=== PATIENT | male | born 1960 | race Caucasian/White ===

== ENCOUNTER 2018-07-04 07:20 | Emergency (ER) | payer BC ==
--- OUTSIDE RECORDS SUMMARY | 2018-07-04 07:23 | XMS REPORT | Continuity of Care Document ---
:1960 Author Organization Interface Problems Problem Status Onset Classification Date Comments Source Date Reported J32.9 - Active [facility] OPID "CHRONIC 6 [place] SINUSITIS, UNSPECIFIED" Hypertrophy of Active Problem 08/25/2016 [facility] nasal 1 [place] turbinates Medications Medication Details Route Status Patient Ordering Order Source Instructions Provider Date Allergies, Adverse Reactions, Alerts Substance Category Reaction Severity Reaction Status Date Comments Source type Reported NKDA Assertion Propensity Active [facility] OPID to adverse 2 [place] reactions to substance Immunizations Immunization Date Given Site Status Last Updated Comments Source Results Order Results Value Reference Date Interpretation Comments Source Name Range Sinus wo Sinus wo PROCEDURE: SINUS CT 08/22 - MH OPID contrast contrast /2015 - [place] CT CT CLINICAL INFORMATION: J32.9. Chronic sinusitis. Read by: Frank Fontaine MD Dictated Date/time: 08/22/16 19:41 Electronically Signed by: Frank Fontaine MD 08/23/16 10:08 FINAL REPORT Note: The patient also reports a headache. COMPARISON: None. TECHNIQUE: Unenhanced axial helical CT images of the paranasal sinuses were performed using the landmark protocol. Coronal and sagittal reconstructions were obtained. CT Radiation Dose DLP 666.75 mGy-cm. FINDINGS: PARANASAL SINUSES: There is segmental mucosal thickening in the bilateral ethmoid sinuses measuring a maximal thickness of approximately 1 mm bilaterally. The cribriform plate appears intact. There is a thin bony septum in the inferior right maxillary sinus. There is segmental mucosal thickening in the inferomedial right maxillary sinus measuring a maximal thickness of approximately 5 mm. Th ere is minimal mucous stranding in the superior right maxillary sinus. The left maxillary sinus is unremarkable. The frontal and sphenoid sinuses are unremarkable. NASAL CAVITY: The ostiomeatal complexes are patent. There is a small frida bullosa in the right middle nasal turbinate. There is leftward deviation of the nasal septum measuring a maximal deviation of approximately 5 mm from the midline. The nasal cavity is otherwise unremarkable. ADDITIONAL FINDINGS: There is mild generalized cerebral atrophy. There is mild calcification involving the cavernous segment of the right internal carotid artery. There is a 4 mm rounded lucency in the marrow of the left occipital calvarium. A benign etiology is favored such as a hemangioma. There is mild debris in the bilateral external auditory canals. There is an impacted tooth in the anterior left maxilla. There is asymmetrically decreased aeration in the inferior left mastoid, likely a developmental variation. The mastoids are otherwise unremarkable without demonstrable acute mastoiditis. There is no demonstrable abnormality of the orbits or middle ear cavities. IMPRESSION: 1. Chronic bilateral ethmoid and right maxillary sinusitis. 2. Right frida bullosa. 3. Deviated nasal septum. 4. Additional findings as described above. SL: 15 Vital Signs Vital Sign Value Date Comments Source Encounters Location Location Encounter Encounter Reason Attending ADM DC Status Source Details Type Number For Provider Date Date Visit [facility] Outpt Diag [id number] Daniel Ward 08[facility]22 [facility] [place] [facility] [place] Procedures Procedure Code Date Perfomer Comments Source
--- OUTSIDE RECORDS SUMMARY | 2018-07-04 07:23 | XMS REPORT | Clinical Summary ---
:1960 Author Organization [facility] Address [address] [place] [address] Care Team Providers Name Role Phone Asked, No Pcp Primary Care Provider Unavailable Allergies No Known Allergies Current Medications Prescription Sig. Disp. Refills Start Date End Date Status NASCOBAL 500 mcg/spray 1 spray by Each 3 02/27/2017 Active spray,non-aerosol Nare route. ferrous gluconate Take 324 mg by Active (FERGON) 324 MG tablet mouth daily with breakfast. cholecalciferol, vitamin Take 1,000 Units by Active D3, (VITAMIN D3) 1,000 mouth daily. unit tablet FERROUS SULFATE (IRON Take 1 tablet by Active ORAL) mouth daily. MULTIVITAMIN ORAL Take 1 tablet by Active mouth daily. CALCIUM ORAL Take 1 tablet by Active mouth daily. Calcium +D3+Magnesium albuterol (PROAIR Inhale 2 puffs Active HFA,PROVENTIL every 6 (six) hours HFA,VENTOLIN HFA) 90 as needed for mcg/actuation inhaler wheezing. Active Problems Problem Noted Date Status post bariatric surgery 02/27/2017 Jung's esophagus 02/27/2017 Asthma 02/27/2017 Osteoarthritis 02/27/2017 Encounters Date Type Specialty Care Team Description 04/23/2018 Office Visit General Surgery Seb Jimenez Status post bariatric MD Baylee surgery (Primary Dx) 04/23/2018 Orders Only General Surgery Lucie Alvarez RN 04/23/2018 Orders Only General Surgery Lien Theodore MA Bariatric surgery status (Primary Dx) 03/24/2018 Orders Only General Surgery Lien Theodore MA Bariatric surgery status (Primary Dx) 08/13/2017 Hospital Encounter Radiology Norm Bradley Cough MD 08/13/2017 Transcribe Orders Access Kirk, Norm S., Cough (Primary Dx) MD after 07/03/2017 Family History Medical History Relation Name Comments No Known Problems Daughter No Known Problems Daughter Esophageal cancer Father No Known Problems Maternal Grandfather No Known Problems Maternal Grandmother Cancer Mother Glaucoma Paternal Grandfather Cancer Paternal Grandmother Cancer Sister No Known Problems Son Relation Name Status Comments Daughter Alive Daughter Alive Father Maternal Grandfather Maternal Grandmother Mother Alive breathing problems Paternal Grandfather heart/intestinal problems Paternal Grandmother Sister Alive Son Alive Social History Tobacco Use Types Packs/Day Years Used Date Never Smoker Smokeless Tobacco: Never Used Alcohol Use Drinks/Week oz/Week Comments No Sex Assigned at Date Recorded Not on file Last Filed Vital Signs Vital Sign Reading Time Taken Blood Pressure 133/78 04/23/2018 9:20 AM CDT Pulse 65 04/23/2018 9:20 AM CDT Temperature 35.7 C (96.2 F) 04/23/2018 9:20 AM CDT Respiratory Rate 16 04/23/2018 9:20 AM CDT Oxygen Saturation - - Inhaled Oxygen Concentration - - Weight 75.2 kg (165 lb 12.8 oz) 04/23/2018 9:20 AM CDT Height 177.8 cm (5' 10") 04/23/2018 9:20 AM CDT Body Mass Index 23.79 04/23/2018 9:20 AM CDT Plan of Treatment Date Type Specialty Care Team Description 04/22/2019 Office Visit General Surgery Seb Jimenez MD [address] [facility] [address] [place] [address] Health Maintenance Due Date Last Done Comments COLON CANCER SCREENING 2012 SHINGRIX VACCINE (#1) 2012 INFLUENZA VACCINE 07/02/2018 Procedures Procedure Name Priority Date/Time Associated Comments Diagnosis PHOSPHORUS LEVEL Routine 03/26/2018 9:03 Bariatric surgery Results for this AM CDT status procedure are in the results section. MAGNESIUM LEVEL Routine 03/26/2018 9:03 Bariatric surgery Results for this AM CDT status procedure are in the results section. T3 Routine 03/26/2018 9:03 Bariatric surgery Results for this AM CDT status procedure are in the results section. ZINC LEVEL, SERUM Routine 03/26/2018 9:03 Bariatric surgery Results for this AM CDT status procedure are in the results section. VITAMIN B1 LEVEL, Routine 03/26/2018 9:03 Bariatric surgery Results for this WHOLE BLOOD AM CDT status procedure are in the results section. FERRITIN LEVEL Routine 03/26/2018 9:03 Bariatric surgery Results for this AM CDT status procedure are in the results section. FOLATE LEVEL Routine 03/26/2018 9:03 Bariatric surgery Results for this AM CDT status procedure are in the results section. COPPER LEVEL, SERUM Routine 03/26/2018 9:03 Bariatric surgery Results for this AM CDT status procedure are in the results section. VITAMIN D 25 HYDROXY Routine 03/26/2018 9:03 Bariatric surgery Results for this LEVEL AM CDT status procedure are in the results section. VITAMIN B12 LEVEL Routine 03/26/2018 9:03 Bariatric surgery Results for this AM CDT status procedure are in the results section. VITAMIN A LEVEL, Routine 03/26/2018 9:03 Bariatric surgery Results for this PLASMA OR SERUM AM CDT status procedure are in the results section. CBC WITH PLATELET AND Routine 03/26/2018 9:03 Bariatric surgery Results for this DIFFERENTIAL AM CDT status procedure are in the results section. PARATHYROID HORMONE Routine 03/26/2018 9:03 Bariatric surgery Results for this AM CDT status procedure are in the results section. HEMOGLOBIN A1C Routine 03/26/2018 9:03 Bariatric surgery Results for this AM CDT status procedure are in the results section. THYROID STIMULATING Routine 03/26/2018 9:03 Bariatric surgery Results for this HORMONE AM CDT status procedure are in the results section. T4, FREE Routine 03/26/2018 9:03 Bariatric surgery Results for this AM CDT status procedure are in the results section. TOTAL IRON BINDING Routine 03/26/2018 9:03 Bariatric surgery Results for this CAPACITY AM CDT status procedure are in the results section. LIPID PANEL Routine 03/26/2018 9:03 Bariatric surgery Results for this AM CDT status procedure are in the results section. COMPREHENSIVE Routine 03/26/2018 9:03 Bariatric surgery Results for this METABOLIC PANEL AM CDT status procedure are in the results section. XR CHEST 2 VW Routine 08/13/2017 11:06 Cough Results for this AM CDT procedure are in the results section. after 07/03/2017 Results Total iron binding capacity (03/26/2018 9:03 AM) Iron level 80 50 - 180 mcg/dL [facility] Iron binding capacity 343 250 - 425 mcg/dL (calc) [facility] Iron saturation 23 15 - 60 % (calc) [facility] Specimen Blood Narrative Performed At FASTING:YES QUEST FASTING: YES Resulting Agency Comment Performing Organization Information: Site ID: [id number] Name: [facility] Address: [address] [place] [address] Director: Awilda Whittaker Performing Organization Address City/[facility] Phone Number [facility] [address] [place], [place] [phone] Copper level, serum (03/26/2018 9:03 AM) Copper 108 70 - 175 mcg/dL wut[facility]OLS Comment: AMAIRANI This test was developed and its analytical performance characteristics have been determined by [facility]. It has not been cleared or approved by the US Food and Drug Administration. This assay has been validated pursuant to the CLIA regulations and is used for clinical purposes. Specimen Blood Narrative Performed At FASTING:YES QUEST FASTING: YES Resulting Agency Comment Performing Organization Information: Site ID: [id number] Name: [facility] [place] Address: [address] [place] [phone] Director: Rocco Lacy M.D., Ph.D Performing Organization Address [facility] Phone Number [facility] [id number] [place] [address] [phone] Vitamin B1 level, whole blood (03/26/2018 9:03 AM) Vitamin B1, whole 142 78 - 185 nmol/L [facility] blood Comment: CARLOS BALES Vitamin supplementation within 24 hours prior to blood draw may affect the accuracy of results. This test was developed and its analytical performance characteristics have been determined by [facility]. It has not been cleared or approved by FDA. This assay has been validated pursuant to the CLIA regulations and is used for clinical purposes. Specimen Blood Narrative Performed At FASTING:YES QUEST FASTING: YES Resulting Agency Comment Performing Organization Information: Site ID: SLI Name: [facility] [place] Address: [address] [place] [address] Director: Rocco Lacy M.D., Ph.D Performing Organization Address [facility] Phone [place] [address] Zinc level, serum (03/26/2018 9:03 AM) Zinc 82 60 - 130 mcg/dL [facility] CARLOS Comment: AMAIRANI This test was developed and its analytical performance characteristics have been determined by [facility]. It has not been cleared or approved by the US Food and Drug Administration. This assay has been validated pursuant to the CLIA regulations and is used for clinical purposes. Specimen Blood Narrative Performed At FASTING:YES QUEST FASTING: YES Resulting Agency Comment Performing Organization Information: Site ID: [facility] Name: [facility] Address: [address] [place] [phone] Director: Rocco Lacy M.D., Ph.D Performing Organization Address [facility] [place] [address] Vitamin A level, plasma or serum (03/26/2018 9:03 AM) Vitamin A (retinol) 31 (L) 38 - 98 mcg/dL [facility] Comment: CARLOS BALES Clin Chem Vol. 34.No.8. [id number]. 1998 Vitamin supplementation within 24 hours prior to blood draw may affect the accuracy of results. This test was developed and its analytical performance characteristics have been determined by [facility]. It has not been cleared or approved by the US Food and Drug Administration. This assay has been validated pursuant to the CLIA regulations and is used for clinical purposes. Specimen Blood Narrative Performed At FASTING:YES QUEST FASTING: YES Resulting Agency Comment Performing Organization Information: Site ID: [facility] Name: [facility] Address: [address] [place] [phone] Director: Rocco Lacy M.D., Ph.D Performing Organization Address [facility] Phone Number [facility] [address] [address] [phone] Vitamin D 25 hydroxy level (03/26/2018 9:03 AM) Vitamin D, 25-hydroxy 18 (L) 30 - 100 ng/mL [facility] Comment: MCQUEEN Vitamin D Status 25-OH Vitamin D: Deficiency:<20 ng/mL Insufficiency: 20 - 29 ng/mL Optimal: > or=30 ng/mL For 25-OH Vitamin D testing on patients on D2-supplementation and patients for whom quantitation of D2 and D3 fractions is required, the QuestAssureD(TM) 25-OH VIT D, (D2,D3), LC/MS/MS is recommended: order code 54610 (patients >2yrs). For more information on this test, go to: http://education.Brainlike/faq/MJU830 (This link is being provided for informational/educational purposes only.) Specimen Blood Narrative Performed At FASTING:YES QUEST FASTING: YES Resulting Agency Comment Performing Organization Information: Site ID: RGA Name: [facility] Address: [address] [place] [phone] Director: Awilda Whittaker Performing Organization Address City/State/Zipcode Phone Number [facility] [place] [address] [place] [phone] CBC with platelet and differential (03/26/2018 9:03 AM) WBC 6.7 3.8 - 10.8 Thousand/uL [facility] RBC 4.95 4.20 - 5.80 Million/uL [facility] HGB 14.5 13.2 - 17.1 g/dL [facility] HCT 43.6 38.5 - 50.0 % [facility] [place] MCV 88.1 80.0 - 100.0 fL [facility] [place] MCH 29.3 27.0 - 33.0 pg [facility] [place] MCHC 33.3 32.0 - 36.0 g/dL [facility] [place] RDW 12.4 11.0 - 15.0 % [facility] [place] Platelet count 311 140 - 400 Thousand/uL [facility] [place] MPV 10.1 7.5 - 12.5 fL [facility] [place] Neutrophils, absolute 4,228 1,500 - 7,800 cells/uL [facility] [place] Lymphocytes, absolute 1,782 850 - 3,900 cells/uL [facility] [place] Monocytes, absolute 516 200 - 950 cells/uL [facility] [place] Eosinophils, absolute 127 15 - 500 cells/uL [facility] [place] Basophils, absolute 47 0 - 200 cells/uL [facility] [place] Neutrophils 63.1 % [facility] [place] Lymphocytes 26.6 % [facility] [place] Monocytes 7.7 % [facility] [place] Eosinophils 1.9 % [facility] [place] Basophils + RC 0.7 % [facility] [place] Specimen Blood Narrative Performed At FASTING:YES QUEST FASTING: YES Resulting Agency Comment Performing Organization Information: Site ID: RGA Name: [facility] Address: [address] [place], [place] [id number] Director: Awilda Whittaker Performing Organization Address [facility] Cent[facility]ode [place] [address] T3 (03/26/2018 9:03 AM) T3 101 76 - 181 ng/dL [facility] [place] Specimen Blood Narrative Performed At FASTING:YES QUEST FASTING: YES Resulting Agency Comment Performing Organization Information: Site ID: RGA Name: [facility] Address: [address] [place] [address] Director: Awilda Whittaker Performing Organization Address [facility] Cent[facility]ode [place] [address] Thyroid stimulating hormone (03/26/2018 9:03 AM) TSH 1.94 0.40 - 4.50 mIU/L [facility] [place] Specimen Blood Narrative Performed At FASTING:YES QUEST FASTING: YES Resulting Agency Comment Performing Organization Information: Site ID: [id number] Name: [facility] Address: [address] [place] [address] Director: Awilda Whittaker Performing Organization Address [facility] Centercode Phone Number [facility] [place] [phone] T4, free (03/26/2018 9:03 AM) T4, free 1.3 0.8 - 1.8 ng/dL [facility] [place] Specimen Blood Narrative Performed At FASTING:YES QUEST FASTING: YES Resulting Agency Comment Performing Organization Information: Site ID: RGA Name: [facility] Address: [address] [place] [address] Director: Awilda Whittaker Performing Organization Address [facility] Cent[facility]ode [place] [address] Phosphorus level (03/26/2018 9:03 AM) Phosphorus 3.2 2.5 - 4.5 mg/dL [facility] [place] Specimen Blood Narrative Performed At FASTING:YES QUEST FASTING: YES Resulting Agency Comment Performing Organization Information: Site ID: RGA Name: [facility] Address: [address] [place] [phone] Director: Awilda Whittaker Performing Organization Address [facility] Cent[facility] Phone Number [facility] [address] [address] Parathyroid hormone (03/26/2018 9:03 AM) PTH 26 14 - 64 pg/mL [facility] Comment: II Interpretive GuideIntact PTH Calcium ------- Normal ParathyroidNormal Normal HypoparathyroidismLow or Low NormalLow Hyperparathyroidism PrimaryNormal or High High SecondaryHigh Normal or Low Tertiary High High Non-Parathyroid HypercalcemiaLow or Low NormalHigh Specimen Blood Narrative Performed At FASTING:YES QUEST FASTING: YES Resulting Agency Comment Performing Organization Information: Site ID: IG Name: [facility] Address: [address] [place] [phone] Director: Dr. Jody Camarillo Performing Organization Address [facility] Phone Number [facility] [address] Magnesium level (03/26/2018 9:03 AM) Magnesium 2.1 1.5 - 2.5 mg/dL [facility] [place] Specimen Blood Narrative Performed At FASTING:YES QUEST FASTING: YES Resulting Agency Comment Performing Organization Information: Site ID: RGA Name: [facility] Address: [address] [place] [phone] Director: Awilda Whittaker Performing Organization Address [facility] Phone Number [facility] [address] [address] Hemoglobin A1c (03/26/2018 9:03 AM) Hemoglobin A1C 5.4 <5.7 % of total Hgb [facility] [place] Comment: For the purpose of screening for the presence of diabetes: <5.7% Consistent with the absence of diabetes 5.7-6.4%Consistent with increased risk for diabetes (prediabetes) > or=6.5%Consistent with diabetes This assay result is consistent with a decreased risk of diabetes. Currently, no consensus exists regarding use of hemoglobin A1c for diagnosis of diabetes in children. According to [place] Diabetes Association (ADA) guidelines, hemoglobin A1c <7.0% represents optimal control in non- diabetic patients. Different metrics may apply to specific patient populations. Standards of Medical Care in Diabetes(ADA). Specimen Blood Narrative Performed At FASTING:YES QUEST FASTING: YES Resulting Agency Comment Performing Organization Information: Site ID: [facility] Name: [facility] Address: [address] [place] [phone] Director: Awilda Whittaker Performing Organization Address [facility] Cent[facility]ode Phone Number [facility] [address] [address] Folate level (03/26/2018 9:03 AM) Folate 7.5 ng/mL [facility] [place] Comment: Reference Range Low: <3.4 Borderline:3.4- 5.4 Normal:> 5.4 Specimen Blood Narrative Performed At FASTING:YES QUEST FASTING: YES Resulting Agency Comment Performing Organization Information: Site ID: A Name: [facility] Address: [address] [place] [phone] Director: Awilda Whittaker Performing Organization Address [facility] Phone Number [email or web address] [place] [phone] Ferritin level (03/26/2018 9:03 AM) Ferritin level 58 20 - 380 ng/mL [facility] [place] Specimen Blood Narrative Performed At FASTING:YES QUEST FASTING: YES Resulting Agency Comment Performing Organization Information: Site ID: [facility] Name: [facility] Address: [address] [place] [phone] Director: Awilda Whittaker Performing Organization Address [facility] Cent[facility] Phone Number [facility] [address] [address] Vitamin B12 level (03/26/2018 9:03 AM) Vitamin B12 438 200 - 1,100 pg/mL [facility] [place] Specimen Blood Narrative Performed At FASTING:YES QUEST FASTING: YES Resulting Agency Comment Performing Organization Information: Site ID: RGA Name: [facility] Address: [address] [place] [phone] Director: Awilda Whittaker Performing Organization Address [facility] Cent[facility] Phone Number [facility] [address] [address] Lipid panel (03/26/2018 9:03 AM) Cholesterol, total 150 <200 mg/dL [facility] [place] HDL cholesterol 33 (L) >40 mg/dL [facility] [place] Triglycerides 79 <150 mg/dL [facility] [place] LDL cholesterol 100 (H) mg/dL (calc) [facility] calculated Comment: [place] Reference range: <100 Desirable range <100 mg/dL for primary prevention; <70 mg/dL for patients with CHD or diabetic patients with > or=2 CHD risk factors. LDL-C is now calculated using the Giuseppe calculation, which is a validated novel method providing better accuracy than the Friedewald equation in the estimation of LDL-C. Rinku SS et al. ENA. 2013;310(19): 2946-8090 (http://education.UseTogether/faq/JUD647) Cholesterol/HDL ratio 4.5 <5.0 (calc) [facility] Non-HDL cholesterol 117 <130 mg/dL [facility] Comment: (calc) [place] For patients with diabetes plus 1 major ASCVD risk factor, treating to a non-HDL-C goal of <100 mg/dL (LDL-C of <70 mg/dL) is considered a therapeutic option. Specimen Blood Narrative Performed At FASTING:YES QUEST FASTING: YES Resulting Agency Comment Performing Organization Information: Site ID: RGA Name: [facility] Address: [address] [place] [phone] Director: Awilda Whittaker Performing Organization Address City/[facility] Phone Number [facility] [address] [address] Comprehensive metabolic panel (03/26/2018 9:03 AM) Glucose 86 65 - 99 mg/dL [facility] Comment: [place] Fasting reference interval BUN, whole blood 16 7 - 25 mg/dL [facility] [place] Creatinine 0.86 0.70 - 1.33 [facility] Comment: mg/dL [place] For patients >49 years of age, the reference limit for Creatinine is approximately 13% higher for people identified as -[place]. EGFR Non-Afr. [place] 98 > OR=60 [facility] mL/min/1.73m2 [place] EGFR 113 > OR=60 [facility] mL/min/1.73m2 [place] BUN/creatinine ratio NOT APPLICABLE 6 - 22 (calc) [facility] [place] Sodium 142 135 - 146 mmol/L [facility] [place] Potassium 4.1 3.5 - 5.3 mmol/L [facility] [place] Chloride 105 98 - 110 mmol/L [facility] [place] CO2 32 (H) 20 - 31 mmol/L [facility] [place] Calcium 9.2 8.6 - 10.3 mg/dL [facility] [place] Protein 6.7 6.1 - 8.1 g/dL [facility] [place] Albumin, S 3.9 3.6 - 5.1 g/dL [facility] [place] Globulin, total 2.8 1.9 - 3.7 g/dL [facility] (calc) [place] Albumin/globulin ratio 1.4 1.0 - 2.5 (calc) [facility] [place] Total bilirubin 0.5 0.2 - 1.2 mg/dL [facility] Alkaline phosphatase 68 40 - 115 U/L [facility] [place] AST 11 10 - 35 U/L [facility] ALT 11 9 - 46 U/L [facility] [place] Specimen Blood Narrative Performed At FASTING:YES QUEST FASTING: YES Resulting Agency Comment Performing Organization Information: Site ID: RGA Name: [facility] Address: [address] [place] [phone] Director: Awilda Whittaker Performing Organization Address City/State/Zipcode Phone Number [facility] [place] [phone] XR Chest 2 Vw (08/13/2017 11:06 AM) Narrative Performed At EXAMINATION:XR CHEST 2 VW RADIANT CLINICAL HISTORY:R05 Cough, cough COMPARISON:None IMPRESSION: Postoperative changes noted in the cervical spine. Heart, mediastinum and lung addison are normal. [id number] Procedure Note Hm Interface, Radiology Results Incoming - 08/13/2017 11:15 AM CDT EXAMINATION: XR CHEST 2 VW CLINICAL HISTORY: R05 Cough, cough COMPARISON: None IMPRESSION: Postoperative changes noted in the cervical spine. Heart, mediastinum and lung addison are normal. [id number] Performing Organization Address City/State/Zipcode Phone Number [facility] [address] [place] [address] after 07/03/2017 Insurance Payer Benefit Plan / Group Subscriber ID Type Phone Address BCBS BCBS CHOICE PPO/FEDERAL EMPL PPO xxxxxxxxxxxx PPO Work: [address] [phone] [place], [place] [address] Home: [phone] [facility]
--- OUTSIDE RECORDS SUMMARY | 2018-07-04 07:23 | XMS REPORT | Summary of Care ---
:1960 Author Organization [facility] [place] Address [facility] [place], [place] [address]- Encounter HQ Encntr_alias(FIN) [id number] Date(s): 08/22/16 - 08/22/16 [facility] [address], [facility] [address] [place] [phone] Discharge Disposition: Home or Self Care Attending Physician: Daniel Ward MD Vital Signs No data available for this section Problem List Condition Effective Dates Status Health Status Informant Hypertrophy of nasal 2011 Active turbinates(Confirmed) Allergies, Adverse Reactions, Alerts Substance Reaction Severity Status NKDA Active Medications No data available for this section Results No data available for this section Immunizations No data available for this section Procedures No data available for this section Social History Social History Type Response Assessment and Plan No data available for this section
[2018-07-04] MEDS ORDERED: LIDOCAINE 1% MPF 5 ML VIAL ONE (07:57)
[2018-07-04] MEDS ORDERED: BUPIVACAINE 0.5% PF 10 ML VIAL ONE (07:57)
[2018-07-04] MEDS ORDERED: TETANUS & DIPHTHERIA TOX,ADULT 0.5 ML VIAL ONE (07:57)
--- NOTE | 2018-07-04 08:19 | EDPHYS ---
Physician Documentation [facility] Name: Jaydon Walden Age: 57 yrs Sex: Male : 1960 Arrival Date: 07/04/2018 Time: 07:24 Bed 17 Private MD: Maciej Mondragon ED Physician Conner Fairbanks HPI: 07/04 08:01 This 57 yrs old Male presents to ER via Ambulatory with complaints of FISH kdr HOOK IN HAND. 08:01 The patient or guardian reports injury, a puncture wound, Fish hook to medial (ulnar) kdr side of hand - along distal left 5th metacarpal. Context: [place], [place] from The patient states that when he reached for a hook, the fish jumped and the hook was pulled into his hand. Onset: The symptoms/episode began/occurred suddenly, just prior to arrival. Modifying factors: The symptoms are alleviated by nothing, the symptoms are aggravated by movement. Associated signs and symptoms: The patient has no apparent associated signs or symptoms. Severity of symptoms: At their worst the symptoms were mild. The patient has not experienced similar symptoms in the past. The patient has not recently seen a physician. Historical: - Allergies: 07:38 NKA; iw - Home Meds: 07:38 None [Active]; iw - PMHx: 07:38 None; iw - PSHx: 07:38 neck; Gastric Bypass; esophagus; left shoulder; iw - Immunization history:: Last tetanus immunization: unknown. - Social history:: Smoking status: Patient/guardian denies using tobacco. - Ebola Screening: : Patient negative for fever greater than or equal to 101.5 degrees Fahrenheit, and additional compatible Ebola Virus Disease symptoms Patient denies exposure to infectious person Patient denies travel to an Ebola-affected area in the 21 days before illness onset No symptoms or risks identified at this time. ROS: 08:01 Constitutional: Negative for fever, chills, and weight loss, Eyes: Negative for injury, kdr pain, redness, and discharge. 08:01 MS/extremity: Positive for pain, puncture. Exam: 08:01 Constitutional: This is a well developed, well nourished patient who is awake, alert, kdr and in no acute distress. 08:01 Musculoskeletal/extremity: Extremities: grossly normal except: pain, puncture. Vital Signs: 07:39 BP 116 / 78; Pulse 67; Resp 16; Temp 98.2; Pulse Ox 98% on R/A; Weight 72.57 kg; Height iw 5 ft. 10 in. (177.80 cm); Pain 6/10; 08:21 BP 115 / 80; Pulse 66; Resp 17; Pulse Ox 97% on R/A; Pain 0/10; tw2 07:39 Body Mass Index 22.96 (72.57 kg, 177.80 cm) Procedures: 08:01 Foreign Body Removal: a fishhook, from the left inner aspect of left palm. kdr MDM: 08:19 Patient medically screened. kdr 08:21 Data reviewed: vital signs, nurses notes. Counseling: I had a detailed discussion with kdr the patient and/or guardian regarding: the need for outpatient follow up. 07/04 07:47 Order name: Dressing - Wound; Complete Time: 08:21 kdr 07/04 07:47 Order name: Gloves, Sterile; Complete Time: 07:58 kdr 07/04 07:47 Order name: Setup Suture Tray; Complete Time: 07:58 kdr Administered Medications: 07:57 Drug: Tetanus-Diphtheria Toxoid Adult 0.5 ml {Fish Filleter: [employer]. Exp: 08/20/2020. Lot #: [id number]. } Route: IM; Site: left deltoid; 08:13 Follow up: Response: No adverse reaction tw2 08:13 Drug: Marcaine (0.25 %) 10 mg {Note: by Dr. Fairbanks.} Route: Infiltration; tw2 08:13 Drug: Lidocaine (1 %) 10 mg {Note: by Dr. Fairbanks.} Volume: 5 ml; Route: Infiltration; tw2 08:21 Drug: Bactrim (160 mg-800 mg (DS) 1 tablet Route: PO; tw2 08:34 Follow up: Response: No adverse reaction tw2 Disposition: 07/04/18 08:19 Discharged to Home. Impression: Puncture wound to left hand - fish hook. Removed. - Condition is Stable. - Discharge Instructions: Puncture Wound, [id number]. - Prescriptions for Tramadol 50 mg Oral Tablet - take 1 tablet by ORAL route every 8 hours as needed; 12 tablet. Bactrim DS 800- 160 mg Oral Tablet - take 1 tablet by ORAL route every 12 hours for 7 days; 14 tablet. - Medication Reconciliation Form, Thank You Letter, Antibiotic Education form. - Follow up: Maciej Mondragon MD; When: 2 - 3 days; Reason: If symptoms return, Further diagnostic work-up, Recheck today's complaints, Continuance of care, Re-evaluation by your physician. - Problem is new. - Symptoms have improved. Signatures: Conner Fairbanks MD MD kdr Martina Mendez RN RN iw Madelyn Leroy RN RN tw2 Corrections: (The following items were deleted from the chart) 08:34 08:19 07/04/2018 08:19 Discharged to Home. Impression: Puncture wound to left hand - tw2 fish hook. Removed. Condition is Stable. Forms are Medication Reconciliation Form, Thank You Letter, Antibiotic Education, Prescription Opioid Use. Follow up: Maciej Mondragon; When: 2 - 3 days; Reason: If symptoms return, Further diagnostic work-up, Recheck today's complaints, Continuance of care, Re-evaluation by your physician. Problem is new. Symptoms have improved. kdr
--- NOTE | 2018-07-04 08:19 | ER ---
Nurse's Notes [facility] Name: Jaydon Walden Age: 57 yrs Sex: Male : 1960 Arrival Date: 07/04/2018 Time: 07:24 Bed 17 Private MD: Maciej Mondragon Diagnosis: Puncture wound to left hand - fish hook. 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 Transition of care: patient was not received from another setting of care. Onset of symptoms was July 04, 2018. Risk Assessment: Do you want to hurt yourself or someone else? Patient reports no desire to harm self or others. Initial Sepsis Screen: Does the patient meet any 2 criteria? No. Patient's initial sepsis screen is negative. Does the patient have a suspected source of infection? No. Patient's initial sepsis screen is negative. Care prior to arrival: None. 07:37 Method Of Arrival: Ambulatory iw 07:37 Acuity: VENTURA 4 iw Triage Assessment: 08:24 General: Appears in no apparent distress. Behavior is calm, cooperative, appropriate tw2 for age. Historical: - Allergies: 07:38 NKA; iw - Home Meds: 07:38 None [Active]; iw - PMHx: 07:38 None; iw - PSHx: 07:38 neck; Gastric Bypass; esophagus; left shoulder; iw - Immunization history:: Last tetanus immunization: unknown. - Social history:: Smoking status: Patient/guardian denies using tobacco. - Ebola Screening: : Patient negative for fever greater than or equal to 101.5 degrees Fahrenheit, and additional compatible Ebola Virus Disease symptoms Patient denies exposure to infectious person Patient denies travel to an Ebola-affected area in the 21 days before illness onset No symptoms or risks identified at this time. Screenin:34 Abuse screen: Denies threats or abuse. Nutritional screening: No deficits noted. tw2 Tuberculosis screening: No symptoms or risk factors identified. Fall Risk None identified. Assessment: 08:20 General: Appears in no apparent distress. well groomed, Behavior is calm, cooperative, tw2 appropriate for age. Pain: Complains of pain in inner aspect of left palm. Neuro: Level of Consciousness is awake, alert, obeys commands, Oriented to person, place, time, situation. Cardiovascular: Denies chest pain, shortness of breath, Capillary refill < 3 seconds Patient's skin is warm and dry. Respiratory: Airway is patent Respiratory effort is even, unlabored, Respiratory pattern is regular, symmetrical. GI: No signs and/or symptoms were reported involving the gastrointestinal system. : No signs and/or symptoms were reported regarding the genitourinary system. EENT: No signs and/or symptoms were reported regarding the EENT system. Derm: Skin is intact, is healthy with good turgor, Skin temperature is warm. Injury Description: Foreign body is located inner aspect of left palm is fish hook. 08:22 Reassessment: Patient appears in no apparent distress at this time. Patient and/or tw2 family updated on plan of care and expected duration. Pain level reassessed. Patient is alert, oriented x 3, equal unlabored respirations, skin warm/dry/pink. Patient states feeling better. Patient states symptoms have improved. Vital Signs: 07:39 BP 116 / 78; Pulse 67; Resp 16; Temp 98.2; Pulse Ox 98% on R/A; Weight 72.57 kg; Height iw 5 ft. 10 in. (177.80 cm); Pain 6/10; 08:21 BP 115 / 80; Pulse 66; Resp 17; Pulse Ox 97% on R/A; Pain 0/10; tw2 07:39 Body Mass Index 22.96 (72.57 kg, 177.80 cm) iw ED Course: 07:24 Patient arrived in ED. rg4 07:25 Maciej Mondragon MD is Private Physician. rg4 07:38 Triage completed. iw 07:39 Arm band placed on. iw 07:41 Conner Fairbanks MD is Attending Physician. kdr 07:41 Madelyn Leroy RN is Primary Nurse. tw2 07:55 Bed in low position. Call light in reach. Pulse ox on. NIBP on. tw2 08:17 Maciej Mondragon MD is Referral Physician. kdr 08:30 Assist provider with laceration repair Set up tray. Performed by Conner Fairbanks MD tw2 Dressed with band aid, Neosporin, Patient tolerated well. Patient did not have IV access during this emergency room visit. 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 Exp: 08/20/2020. Lot #: [id number]. } Route: IM; Site: left deltoid; 08:13 Follow up: Response: No adverse reaction 08:13 Drug: Marcaine (0.25 %) 10 mg {Note: by Dr. Fairbanks.} Route: Infiltration; 08:13 Drug: Lidocaine (1 %) 10 mg {Note: by Dr. Fairbanks.} Volume: 5 ml; Route: Infiltration; 08:21 Drug: Bactrim (160 mg-800 mg (DS) 1 tablet Route: PO; 08:34 Follow up: Response: No adverse reaction tw Outcome: : Discharge ordered by . kdr 08:34 Patient left the ED. tw 08:34 Discharged to home ambulatory. tw 08:34 Condition: stable 08:34 Discharge instructions given to patient, Instructed on discharge instructions, follow up and referral plans. medication usage, wound care, Demonstrated understanding of instructions, follow-up care, medications, wound care, Prescriptions given X 2. Signatures: Conner Fairbanks MD MD kdr Williams, Irene, RN RN iw Madelyn Leroy RN RN tw2 Beverley Hoskins rg4
[2018-07-04] MEDS ORDERED: SMZ./TMP. 800/160 MG TABLET ONE (08:22)
== END 2018-07-04 08:34 | disposition home or self-care (01) ==
LOC: ER 07:20
DX: S61.442A Puncture wound with foreign body of left hand, initial encounter (principal); W45.8XXA Other foreign body or object entering through skin, initial encounter; W22.8XXA Striking against or struck by other objects, initial encounter; Y93.89 Activity, other specified; Y92.89 Other specified places as the place of occurrence of the external cause; Z23 Encounter for immunization
CPT/HCPCS: 90714; 99284

== ENCOUNTER 2024-04-15 06:21 | Emergency (ER) | payer BC, OTHER ==
[2024-04-15] MEDS ORDERED: NA CHLORIDE 0.9% 1,000 ML ONE (07:37)
[2024-04-15 07:38] LABS: Absolute Eosinophils 0.2 K/uL (0-0.5); Absolute Lymphocytes (CBC) 1.7 K/uL (0.7-4.9); Absolute Monocytes 0.4 K/uL (0.1-1.3); Absolute Neutrophil 3.7 K/uL (1.8-8.0); Basophils % 0.8 % (0-1.3); Eosinophils % 2.6 % (0-4.4); Hematocrit 37.8 % (39.6-49.0); Hemoglobin 11.7 g/dL (13.6-17.9); Lymphocytes % 28.2 % (15.3-44.8); MCHC 30.8 g/dL (32.0-36.0); MCV 74.5 fL (80-100); MPV 8.1 fL (7.6-11.3); Monocytes % 6.5 % (3.3-12.3); Neutrophils % 61.9 % (41.7-73.7); Platelets 334 thou/uL (152-406); RBC Red Blood Cell Count 5.08 M/uL (4.33-5.43); Red Cell Distribution Width 16.8 % (12.1-15.2)
[2024-04-15 08:00] LABS: Albumin 3.4 g/dL (3.4-5.0); Bilirubin Total 0.6 mg/dL (0.2-1.0); Globulin 3.4 g/dL (2.3-3.5); Protein, Total 6.8 g/dL (6.4-8.2)
--- NOTE | 2024-04-15 08:04 | RAD REPORT ---
EXAM DESCRIPTION: CTAbdomen Pelvis W Contrast - 04/15/2024 7:56 am CLINICAL HISTORY: Abdominal pain. ABD PAIN COMPARISON: No comparisons TECHNIQUE: Biphasic CT imaging of the abdomen and pelvis was performed with 100 ml non-ionic IV cont rast. All CT scans are performed using dose optimization technique as appropriate and may include automated exposure control or mA/KV adjustment according to patient size. FINDINGS: Cholecystectomy clips.Postsurgical changes gastroesophageal junction with mild thickening of distal esophagus. Small hiatal hernia. Postsurgical changes about the stomach noted. Lung bases ar e clear. The liver, spleen, pancreas, adrenal glands and kidneys are within normal limits. No bowel obstruction, free air, free fluid or abscess. Thickening of the sigmoid colon with numerous diverticula present. The appendix is normal. No evidence of significant lymphadenopathy. Mild lumbosacral degenerative changes. IMPRESSION: Thickening of the sigmoid colon with numerous diverticula present. Followup nonemergent colonoscopy would be recommended. Mild distal esophageal thickening with postsurgical changes at the gastroesophageal junction.
[2024-04-15 08:54] LABS: Urine Bilirubin NEGATIVE (Negative); Urine Blood Negative (Negative); Urine Clarity Clear (Clear); Urine Color Light-Yellow (Yellow); Urine Glucose NEGATIVE (Negative); Urine Ketones NEGATIVE (Negative); Urine Microscopic Reflex YN NO UMIC; Urine Nitrite NEGATIVE (Negative); Urine Protein NEGATIVE (Negative); Urine Urobilinogen 1+ (Normal); Urine pH 6.5 (5.0-7.0)
[2024-04-15 08:59] LABS: Specific Gravity > 1.030 (1.005-1.030)
--- NOTE | 2024-04-15 09:10 | EDPHYS ---
Physician Documentation [facility] Name: Jaydon Walden Age: 63 yrs Sex: Male : 1960 Arrival Date: 04/15/2024 Time: 06:21 Bed 18 Private MD: Burak Kelley ED Physician Quirino Leos HPI: 04/15 06:32 This 63 yrs old Male presents to ER via Unassigned with complaints of sp4 Abdominal Pain. 07:29 63-year-old male with a history of asthma now presents with a 9-day history of episodic sp3 epigastric and right upper quadrant abdominal pain off and on in "spurts" throughout the day. 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 He denies any other symptoms including fever, URI symptoms, headache, neck pain, chest pain, shortness of breath, back pain, lower abdominal pain, vomiting, diarrhea, rash, syncope, near syncope, known sick contacts, potential bad food, travel history, or any other signs or symptoms on ROS at this time.. Historical: - Allergies: 07:01 NKA; pf1 - PMHx: 07:01 Asthma; pf1 - PSHx: 07:01 gastric bypass; neck; Cholecystectomy; nose; right shoudler; merrill's esophagus; pf1 - Immunization history:: Adult Immunizations not up to date, Client reports receiving the 1st dose of the Covid vaccine, Last tetanus immunization: < 5 years ago Flu vaccine is not up to date. - Infectious Disease History:: Denies. - Social history:: Smoking status: Patient denies any tobacco usage or history of. Patient/guardian denies using alcohol, street drugs. ROS: 07:33 Constitutional: Negative for fever, chills, and weight loss, Eyes: Negative for injury, sp3 pain, redness, and discharge, ENT: Negative for injury, pain, and discharge, Neck: Negative for injury, pain, and swelling, Cardiovascular: Negative for chest pain, palpitations, and edema, Respiratory: Negative for shortness of breath, cough, wheezing, and pleuritic chest pain, Back: Negative for injury and pain, : Negative for injury, bleeding, discharge, and swelling, MS/Extremity: Negative for injury and deformity, Skin: Negative for injury, rash, and discoloration, Neuro: Negative for headache, weakness, numbness, tingling, and seizure, Psych: Negative for depression, anxiety, suicide ideation, homicidal ideation, and hallucinations, Allergy/Immunology: Negative for hives, rash, and allergies, Endocrine: Negative for neck swelling, polydipsia, polyuria, polyphagia, and marked weight changes, 07:33 All other systems are negative, Exam: 07:33 Constitutional: This is a well developed, well nourished patient who is awake, alert, sp3 and in no acute distress. Head/Face: Normocephalic, atraumatic. Eyes: Pupils equal round and reactive to light, extra-ocular motions intact. Lids and lashes normal. Conjunctiva and sclera are non-icteric and not injected. Cornea within normal limits. Periorbital areas with no swelling, redness, or edema. ENT: Nares patent. No nasal discharge, no septal abnormalities noted. External auditory canals are clear. Oropharynx with no redness, swelling, or masses, exudates, or evidence of obstruction, uvula midline. Mucous membranes moist. Neck: Trachea midline, no thyromegaly or masses palpated, and no cervical lymphadenopathy. Supple, full range of motion without nuchal rigidity, or vertebral point tenderness. No Meningismus. Chest/axilla: Normal chest wall appearance and motion. Nontender with no deformity. No lesions are appreciated. Cardiovascular: Regular rate and rhythm with a normal S1 and S2. No gallops, murmurs, or rubs. Normal PMI, no JVD. No pulse deficits. Respiratory: Lungs have equal breath sounds bilaterally, clear to auscultation and percussion. No rales, rhonchi or wheezes noted. No increased work of breathing, no retractions or nasal flaring. Back: No spinal tenderness. No costovertebral tenderness. Full range of motion. Skin: Warm, dry with normal turgor. Normal color with no rashes, no lesions, and no evidence of cellulitis. MS/ Extremity: Pulses equal, no cyanosis. Neurovascular intact. Full, normal range of motion. Neuro: Awake and alert, GCS 15, oriented to person, place, time, and situation. Cranial nerves II-XII grossly intact. Motor strength 5/5 in all extremities. Sensory grossly intact. Cerebellar exam normal. Normal gait. Psych: Awake, alert, with orientation to person, place and time. Behavior, mood, and affect are within normal limits. 07:33 Abdomen/GI: Mild right upper quadrant abdominal pain to palpation without peritoneal signs, rebound or guarding. Nonsurgical abdomen noted., Vital Signs: 06:37 BP 123 / 84; Pulse 73; Resp 16; Temp 98.1; Pulse Ox 98% on R/A; Weight 74.84 kg; Height pf1 5 ft. 10 in. ; Pain 6/10; 08:12 BP 126 / 76; Pulse 60; Resp 16 S; Pulse Ox 99% on R/A; kc6 09:04 BP 119 / 80; Pulse 60; Resp 17 S; Pulse Ox 100% on R/A; kc6 06:37 Body Mass Index 23.67 (74.84 kg, 177.8 cm) pf1 06:37 Pain Scale: Adult pf1 MDM: 06:33 Patient medically screened. sp4 07:34 Data reviewed: vital signs, nurses notes, lab test result(s), radiologic studies. ED sp3 course: 63-year-old male with epigastric and right upper quadrant abdominal pain and history of prior abdominal surgeries. Differential diagnosis includes pancreatitis, esophageal pathology, gastritis, colitis, among others. I am not highly suspicious for aortic pathology, ACS, pneumonia, or any other concerning process. Also consider UTI/pyelonephritis as well as kidney stone. Workup will include laboratory values, UA and CT scan of the abdomen pelvis. Disposition pending workup and patient course. Patient currently declined pain medication saying he is not in pain at the moment.. 09:10 ED course: CT scan and laboratory workup are within normal limits. No concerning sp3 findings are noted. Will recommend him follow-up with his GI physician for endoscopy for further evaluation.. 04/15 06:32 Order name: CBC with Diff; Complete Time: 08:10 sp4 04/15 06:32 Order name: CMP; Complete Time: 08:10 sp4 04/15 06:32 Order name: Lipase; Complete Time: 08:10 sp4 04/15 06:32 Order name: Urinalysis w/ reflexes; Complete Time: 09:09 sp4 04/15 07:05 Order name: CRP sp4 04/15 07:05 Order name: CT Abd/Pelvis - IV Contrast Only; Complete Time: 08:10 sp4 04/15 06:32 Order name: IV Saline Lock; Complete Time: 07:37 sp4 04/15 06:32 Order name: Labs collected and sent; Complete Time: 07:37 sp4 Administered Medications: 08:03 Drug: NS 0.9% IV 1000 ml IV at 1 bolus Per protocol; 1000 mL bolus Route: IV; Rate: 1 kc6 bolus; Site: left forearm; 09:11 Follow up: Response: No adverse reaction; IV Status: Completed infusion; IV Intake: kc6 1000ml Disposition Summary: 04/15/24 09:10 Discharge Ordered Notes: Location: Home sp3 Condition: Stable sp3 Diagnosis - Abdominal pain, unspecified sp3 Followup: sp3 - With: Private Physician - When: Upon discharge from the Emergency Department - Reason: Continuance of care Discharge Instructions: - Discharge Summary Sheet sp3 - Abdominal Pain, Adult sp3 Forms: - Medication Reconciliation Form sp3 - Antibiotic Education sp3 - Prescription Opioid Use sp3 - Patient Portal Instructions sp3 - Leadership Thank You Letter sp3 Signatures: Dispatcher [employer] EDQuirino Barger MD MD sp3 Gwen Lazar RN RN kc6 Tessie Mcgowan RN RN pf1 Galindo Sheth MD MD sp4 Corrections: (The following items were deleted from the chart) 07:33 07:29 63-year-old. sp3 sp3
--- NOTE | 2024-04-15 09:10 | ER ---
Nurse's Notes [facility] Name: Jaydon Walden Age: 63 yrs Sex: Male : 1960 Arrival Date: 04/15/2024 Time: 06:21 Bed 18 Private MD: Burak Kelley Diagnosis: Abdominal pain, unspecified Presentation: 04/15 06:37 Chief complaint: Patient states: intermittent upper abdominal pain that sometimes pf1 radiates to right back,onset 9 days. Patient stated has lost approximately 10 lbs of weight in the past 2 weeks. Patient denies any nausea, vomiting or diarrhea. 06:37 Coronavirus screen: Vaccine status: Patient reports receiving the 1st dose of the Covid pf1 vaccine. Client denies travel out of the [place] in the last 14 days. At this time, the client does not indicate any symptoms associated with coronavirus-19. Ebola Screen: Patient negative for fever greater than or equal to 101.5 degrees Fahrenheit, and additional compatible Ebola Virus Disease symptoms. Initial Sepsis Screen: Does the patient meet any 2 criteria? No. Patient's initial sepsis screen is negative. Does the patient have a suspected source of infection? No. Patient's initial sepsis screen is negative. Risk Assessment: Do you want to hurt yourself or someone else? Patient reports no desire to harm self or others. Onset of symptoms was April 06, 2024. 06:37 Method Of Arrival: Ambulatory pf1 06:37 Acuity: VENTURA 3 pf1 Triage Assessment: 06:45 General: Appears in no apparent distress. comfortable, well groomed, well developed, pf1 Behavior is calm, cooperative, appropriate for age, quiet. Pain: Complains of pain in back and abdomen. 06:45 GI: Abdomen is flat, non-distended, Reports upper abdominal pain. pf1 Historical: - Allergies: 07:01 NKA; pf1 - PMHx: 07:01 Asthma; pf1 - PSHx: 07:01 gastric bypass; neck; Cholecystectomy; nose; right shoudler; merrill's esophagus; pf1 - Immunization history:: Adult Immunizations not up to date, Client reports receiving the 1st dose of the Covid vaccine, Last tetanus immunization: < 5 years ago Flu vaccine is not up to date. - Infectious Disease History:: Denies. - Social history:: Smoking status: Patient denies any tobacco usage or history of. Patient/guardian denies using alcohol, street drugs. Screenin:10 [facility] ED Fall Risk Assessment (Adult) History of falling in the last 3 months, kc6 including since admission No falls in past 3 months (0 pts) Confusion or Disorientation No (0 pts) Intoxicated or Sedated No (0 pts) Impaired Gait No (0 pts) Mobility Assist Device Used No (0 pt) Altered Elimination No (0 pt) Score/Fall Risk Level 0 - 2 = Low Risk. Abuse screen: Denies threats or abuse. Denies injuries from another. Nutritional screening: No deficits noted. Tuberculosis screening: No symptoms or risk factors identified. Assessment: 07:00 General: Appears in no apparent distress. comfortable, well groomed, well developed, kc6 Behavior is calm, cooperative, appropriate for age. Pain: Complains of pain in right mid back, right upper quadrant and left upper quadrant. Neuro: Level of Consciousness is awake, alert, obeys commands, Oriented to person, place, time, situation, Appropriate for age. Cardiovascular: Capillary refill < 3 seconds. Respiratory: Airway is patent Trachea midline Respiratory effort is even, unlabored, Respiratory pattern is regular, symmetrical. GI: No signs and/or symptoms were reported involving the gastrointestinal system. Abdomen is flat, non-distended, Bowel sounds present X 4 quads. Abd is soft X 4 quads Abdomen is tender to palpation in right upper quadrant and left upper quadrant Reports upper abdominal pain, Patient currently denies diarrhea, nausea, vomiting. : No signs and/or symptoms were reported regarding the genitourinary system. EENT: No signs and/or symptoms were reported regarding the EENT system. Derm: No signs and/or symptoms reported regarding the dermatologic system. Skin is intact, is healthy with good turgor, Skin is pink, warm \T\ dry. Musculoskeletal: No signs and/or symptoms reported regarding the musculoskeletal system. Circulation, motion, and sensation intact. Capillary refill < 3 seconds, Range of motion: intact in all extremities. 08:12 Reassessment: Patient appears in no apparent distress at this time. No changes from kc6 previously documented assessment. Patient and/or family updated on plan of care and expected duration. Pain level reassessed. Patient is alert, oriented x 3, equal unlabored respirations, skin warm/dry/pink. 09:04 Reassessment: Patient appears in no apparent distress at this time. No changes from kc6 previously documented assessment. Patient and/or family updated on plan of care and expected duration. Pain level reassessed. Patient is alert, oriented x 3, equal unlabored respirations, skin warm/dry/pink. Vital Signs: 06:37 BP 123 / 84; Pulse 73; Resp 16; Temp 98.1; Pulse Ox 98% on R/A; Weight 74.84 kg; Height pf1 5 ft. 10 in. ; Pain 6/10; 08:12 BP 126 / 76; Pulse 60; Resp 16 S; Pulse Ox 99% on R/A; kc6 09:04 BP 119 / 80; Pulse 60; Resp 17 S; Pulse Ox 100% on R/A; kc6 06:37 Body Mass Index 23.67 (74.84 kg, 177.8 cm) pf1 06:37 Pain Scale: Adult pf1 ED Course: 06:25 Patient arrived in ED. gm2 06:25 Burak Kelley MD is Private Physician. gm2 06:31 Galindo Sheth MD is Attending Physician. sp4 06:43 Triage completed. pf1 07:00 Report received from SIMONE Gaviria. kc6 07:00 Arm band placed on. kc6 07:14 Attending Physician role handed off by Galindo Sheth MD sp3 07:14 Quirino Leos MD is Attending Physician. sp3 07:25 Initial lab(s) drawn, by id, sent to lab. Inserted saline lock: 22 gauge in left ll1 forearm, using aseptic technique. Blood collected. 07:36 Gwen Lazar, SIMONE is Primary Nurse. kc6 07:58 CT Abd/Pelvis - IV Contrast Only In Process Unspecified. EDMS 08:08 Patient has correct armband on for positive identification. Placed in gown. Bed in low kc6 position. Call light in reach. Side rails up X 1. Client placed on continuous cardiac and pulse oximetry monitoring. NIBP monitoring applied. Door closed. Noise minimized. Warm blanket given. Pillow given. 08:43 Urinalysis w/ reflexes Sent. kc6 09:17 No provider procedures requiring assistance completed. IV discontinued, intact, kc6 bleeding controlled, No redness/swelling at site. Pressure dressing applied. Administered Medications: 08:03 Drug: NS 0.9% IV 1000 ml IV at 1 bolus Per protocol; 1000 mL bolus Route: IV; Rate: 1 kc6 bolus; Site: left forearm; 09:11 Follow up: Response: No adverse reaction; IV Status: Completed infusion; IV Intake: kc6 1000ml Medication: 09:17 VIS not applicable for this client. kc6 Intake: 09:11 IV: 1000ml; Total: 1000ml. kc6 Outcome: 09:10 Discharge ordered by MD. [email or web address] 09:17 Discharged to home ambulatory, kc6 09:17 Condition: good 09:17 Discharge instructions given to patient, Instructed on discharge instructions, follow up and referral plans. Demonstrated understanding of instructions, follow-up care, :17 Patient left the ED. kc6 Signatures: Dispatcher [employer] EDPhilomena Triplett RN RN ll1 Quirino Leos MD MD sp3 Gwen Lazar RN RN kc6 Tessie Mcgowan RN RN pf1 Galindo Sheth MD MD sp4 Narda Spring gm2 Corrections: (The following items were deleted from the chart) 07:01 07:01 Triage completed. pf1 pf1
[2024-04-15 09:31] VITALS: BP 119/80; TEMP 98.1; O2SAT 100
== END 2024-04-15 09:17 | disposition home or self-care (01) ==
LOC: ER 06:21
DX: R10.13 Epigastric pain (principal); R10.11 Right upper quadrant pain
CPT/HCPCS: 85025; 36415; 81003; 83690; 80053; 86140; 74177; Q9967; J7030